=== PATIENT | female | born 1960 | race African-American/Black ===

== ENCOUNTER 2016-08-05 17:44 | Emergency (ER) | payer SELFPAY ==
[~2016-08-05] VITALS: Ht 160 cm; Wt 50.0 kg
[2016-08-05 17:48] VITALS: BP 112/76; PULSE 77; RESP 22; TEMP 98.8; O2SAT 99
[2016-08-05 18:28] VITALS: O2SAT 93
[2016-08-05 18:56] LABS: AUTOMATED NEUTROPHIL # 8.7 TH/MM3 (1.8-7.7); BASOPHIL % 0.3 % (0.0-2.0); EOSINOPHIL % 0.1 % (0.0-4.0); HEMO FLAGS DIFF FINAL; LYMPH % 12.7 % (9.0-44.0); LYMPHOCYTE # 1.5 TH/MM3 (1.0-4.8); MEAN CELL VOLUME 104.3 FL (80.0-100.0); MEAN CORPUSCULAR HGB CONC 33.6 % (32.0-36.0); MONO % 12.1 % (0.0-8.0); NEUT % 74.8 % (16.0-70.0); PLATELET COUNT 224 TH/MM3 (150-450); RED BLOOD COUNT 3.74 MIL/MM3 (4.00-5.30); RED CELL DISTRIBUTION WIDTH 13.5 % (11.6-17.2); WHITE BLOOD COUNT 11.6 TH/MM3 (4.0-11.0)
--- NOTE | 2016-08-05 19:01 | RADRPT ---
EXAM DATE/TIME: 08/05/2016 18:40 [place] COMPARISON: No previous studies available for comparison. INDICATIONS : Fever for the past two days. MEDICAL HISTORY : None. SURGICAL HISTORY : None. ENCOUNTER: Initial ACUITY: 2 days PAIN SCORE: 0/10 LOCATION: Bilateral chest FINDINGS: No infiltrate, effusion or pneumothorax. Heart size upper limits of normal. Mild to moderate S. shaped thoracolumbar curvature noted. CONCLUSION: No evidence of acute cardiopulmonary disease. Borderline compensated cardiomegaly. Scoliosis. Elijah Varghese MD on August 05, 2016 at 18:58 Board Certified Radiologist. This report was verified electronically.
[2016-08-05 19:02] VITALS: BP 96/73; PULSE 101; RESP 18; O2SAT 99
[2016-08-05 19:15] LABS: ANION GAP 10 MEQ/L (5-15); AST (GOT) 12 U/L (15-37); BICARBONATE 26.1 MEQ/L (21.0-32.0); BLOOD UREA NITROGEN 8 MG/DL (7-18); CHLORIDE 98 MEQ/L (98-107); GLOMERULAR FILTRATION RATE 95 ML/MIN (>89); POTASSIUM 3.1 MEQ/L (3.5-5.1); SODIUM (NA) 134 MEQ/L (136-145)
[2016-08-05 19:17] LABS: ALT (GPT) 13 U/L (10-53)
[2016-08-05 19:18] LABS: ALKALINE PHOSPHATASE 68 U/L (45-117); TOTAL BILIRUBIN ADULT 0.5 MG/DL (0.2-1.0)
[2016-08-05] MEDS ORDERED: POTASSIUM CHLORIDE 10 MEQ CONTROLLED RELEASE TAB PO ONE (19:30)
[2016-08-05] MEDS ORDERED: TYLE325T PO (19:35)
[2016-08-05] MEDS ORDERED: LEVO500T8 PO (19:35)
--- NOTE | 2016-08-05 19:35 | PD ---
HPI Chief Complaint: Fever Time Seen by Provider: 19:29 Travel History International Travel<30 days: No Contact w/Intl Traveler<30days: No Traveled to known affect area: No History of Present Illness HPI 56-year-old female with history of no significant past medical issues, presents to the ER today for several days history of fevers of 102 at home. She denies coughing, nausea, vomiting, abdominal pain, chest pains, or shortness of breath. She states that she went to see the urgent care clinic and was told to come to the ER. She states that they heard something in her lung. Modifying Factors: None Associated Signs & Symptoms: Abnormal lung sounds, fever Risk Factors: None PFSH Past Medical History ?: Not : 2 Para: 2 Past Surgical History Gynecologic Surgery: Yes (HYSTERECTOMY) Hysterectomy: Yes Social History Alcohol Use: Yes (OCC) Tobacco Use: Yes Substance Use: No Allergies-Medications (Allergen,Severity, Reaction): Coded Allergies: No Known Allergies (Unverified , 08/05/16) Review of Systems Except as stated in HPI: all other systems reviewed are Neg Physical Exam Narrative GENERAL: Well-developed pleasant middle age -[place] female patient currently not acute distress. Awake and oriented 3. SKIN: Focused skin assessment warm/dry. HEAD: Atraumatic. Normocephalic. EYES: Pupils equal and round. No scleral icterus. No injection or drainage. ENT: No nasal bleeding or discharge. Mucous membranes pink and moist. NECK: Trachea midline. No JVD. CARDIOVASCULAR: Regular rate and rhythm. No murmur appreciated. RESPIRATORY: No accessory muscle use. Right mid lung crackles. Breath sounds equal bilaterally. GASTROINTESTINAL: Abdomen soft, non-tender, nondistended. Hepatic and splenic margins not palpable. MUSCULOSKELETAL: No obvious deformities. No clubbing. No cyanosis. No edema. NEUROLOGICAL: Awake and alert. No obvious cranial nerve deficits. Motor grossly within normal limits. Normal speech. PSYCHIATRIC: Appropriate mood and affect; insight and judgment normal. Data Data Last Documented VS Vital Signs Date Time Temp Pulse Resp B/P Pulse Ox O2 Delivery O2 Flow Rate FiO2 08/05/16 19:02 101 18 96/73 99 Room Air 08/05/16 17:48 98.8 Orders Complete Blood Count With Diff (08/05/16 18:17) Comprehensive Metabolic Panel (08/05/16 18:17) Lactic Acid Sepsis Protocol (08/05/16 18:17) Influenzae A/B Antigen (08/05/16 18:17) Blood Culture (08/05/16 18:17) Chest, Single Ap (08/05/16 18:17) Blood Glucose (08/05/16 18:17) Ecg Monitoring (08/05/16 18:17) Iv Access Insert/Monitor (08/05/16 18:17) Oximetry (08/05/16 18:17) Oxygen Administration (08/05/16 18:17) Potassium Chloride (Kcl) (08/05/16 19:30) Labs Laboratory Tests Test 08/05/16 08/05/16 18:30 18:33 Sodium Level 134 MEQ/L Potassium Level 3.1 MEQ/L Chloride Level 98 MEQ/L Carbon Dioxide Level 26.1 MEQ/L Anion Gap 10 MEQ/L Blood Urea Nitrogen 8 MG/DL Creatinine 0.76 MG/DL Estimat Glomerular Filtration 95 ML/MIN Rate Random Glucose 164 MG/DL Lactic Acid Level 1.3 mmol/L Calcium Level 9.3 MG/DL Total Bilirubin 0.5 MG/DL Aspartate Amino Transf 12 U/L (AST/SGOT) Alanine Aminotransferase 13 U/L (ALT/SGPT) Alkaline Phosphatase 68 U/L Total Protein 8.2 GM/DL Albumin 3.7 GM/DL White Blood Count 11.6 TH/MM3 Red Blood Count 3.74 MIL/MM3 Hemoglobin 13.1 GM/DL Hematocrit 39.0 % Mean Corpuscular Volume 104.3 FL Mean Corpuscular Hemoglobin 35.0 PG Mean Corpuscular Hemoglobin 33.6 % Concent Red Cell Distribution Width 13.5 % Platelet Count 224 TH/MM3 Mean Platelet Volume 9.1 FL Neutrophils (%) (Auto) 74.8 % Lymphocytes (%) (Auto) 12.7 % Monocytes (%) (Auto) 12.1 % Eosinophils (%) (Auto) 0.1 % Basophils (%) (Auto) 0.3 % Neutrophils # (Auto) 8.7 TH/MM3 Lymphocytes # (Auto) 1.5 TH/MM3 Monocytes # (Auto) 1.4 TH/MM3 Eosinophils # (Auto) 0.0 TH/MM3 Basophils # (Auto) 0.0 TH/MM3 CBC Comment DIFF FINAL Differential Comment MDM Medical Decision Making Medical Screen Exam Complete: Yes Emergency Medical Condition: Yes Medical Record Reviewed: Yes Interpretation(s) Laboratory Tests Test 08/05/16 08/05/16 18:30 18:33 Sodium Level 134 MEQ/L (136-145) Potassium Level 3.1 MEQ/L (3.5-5.1) Random Glucose 164 MG/DL (74-106) Aspartate Amino Transf 12 U/L (15-37) (AST/SGOT) White Blood Count 11.6 TH/MM3 (4.0-11.0) Red Blood Count 3.74 MIL/MM3 (4.00-5.30) Mean Corpuscular Volume 104.3 FL (80.0-100.0) Mean Corpuscular Hemoglobin 35.0 PG (27.0-34.0) Neutrophils (%) (Auto) 74.8 % (16.0-70.0) Monocytes (%) (Auto) 12.1 % (0.0-8.0) Neutrophils # (Auto) 8.7 TH/MM3 (1.8-7.7) Monocytes # (Auto) 1.4 TH/MM3 (0-0.9) Last 24 hours Impressions Chest X-Ray 08/05/161816 Signed Impressions: Service Date/Time: Friday, August 05, 2016 18:40 - CONCLUSION: No evidence of acute cardiopulmonary disease. Borderline compensated cardiomegaly. Scoliosis. Elijah Varghese MD Differential Diagnosis Pneumonia versus bronchitis versus viral URI versus influenza Narrative Course Influenza test is negative. Exam is consistent with a pneumonia. Chest x-ray did not show any obvious findings. At this point, my plan would be to treat her with antibiotics for early pneumonia. She appears to be doing well at this time and without significant past nuchal issues, I plan to treat her as an outpatient with follow-up to primary care physician. Return for any worsening in symptoms as necessary. The plan has been discussed with her and she states understanding. Diagnosis Primary Impression: Pneumonia Med/Other Pt SpecificInfo: Prescription(s) given Scripts Acetaminophen (Tylenol)325 Mg [id number] Mg PO Q6H PRN (FEVER) #15 TAB Ref 0 Prov:Faustina Lema MD 08/05/16 Levofloxacin 500 Mg [id number] Mg PO DAILY #5 TAB Ref 0 Prov:Faustina Lema MD 08/05/16 Disposition: 01 DISCHARGE HOME Condition: Stable Faustina Lema MD Aug 05, 2016 19:35
[2016-08-05] MEDS ORDERED: LEVOFLOXACIN 500 MG TAB PO ONE (19:45)
== END 2016-08-05 20:01 | disposition home or self-care (01) ==
LOC: NEPC 17:44
DX: J18.9 Pneumonia, unspecified organism (principal); B96.20 Unspecified Escherichia coli [E. coli] as the cause of diseases classified elsewhere; Z72.0 Tobacco use
CPT/HCPCS: 71010; 80053; 83605; 85025; 87040; 87077; 87186; 87205; 87804; 99285